=== PATIENT | male | born 1975 | race African-American/Black ===

== ENCOUNTER 2021-11-03 12:50 | Inpatient (IN) | payer OTHER ==
[2021-11-03 15:57] VITALS: BMI 20.8
[2021-11-03] MEDS ORDERED: guaiFENesin 200 MG/10 ML 10 ML UNIT-DOSE CUPS PO PRN (18:34)
[2021-11-03] MEDS ORDERED: MAG HYDROX/AL HYDROX/SIMETH 30 ML UNIT-DOSE CUP PO PRN (18:34)
[2021-11-03] MEDS ORDERED: LOPERAMIDE HCL 2 MG CAPSULE PO PRN (18:34)
[2021-11-03] MEDS ORDERED: ACETAMINOPHEN 325 MG TABLET (FP) PO PRN (18:34)
[2021-11-03] MEDS ORDERED: IBUPROFEN 400 MG TABLET (FP) PO PRN (18:34)
[2021-11-03] MEDS ORDERED: P-EPHED 60MG/TRIPROLIDI 2.5MG TABLET PO PRN (18:34)
[2021-11-03] MEDS ORDERED: MAGNESIUM CITRATE 300 ML BOTTLE PO PRN (18:34)
[2021-11-03] MEDS ORDERED: MAGNESIUM HYDROX 2400MG/30ML ORAL SUSPENSION 30 ML CUP PO PRN (18:34)
[2021-11-03] MEDS ORDERED: TUBERCULIN PPD 5 TU/0.1ML VIAL ID ONE (20:37)
[2021-11-03] MEDS: PRENATAL VITAMINS W/ FOLIC ACID TABLET (FP) PO SCH (20:39)
[2021-11-03] MEDS: NICOTINE 7 MG/24 HOURS TOPICAL PATCH TD SCH (20:40)
[2021-11-03] MEDS: BACITRACIN 0.9 GM PACKET TP SCH (21:00)
[2021-11-03] MEDS: MELATONIN 5 MG TABLETS PO SCH (21:00)
[2021-11-03] MEDS: THIAMINE HCL 100 MG TABLET (FP) PO SCH (21:00)
[2021-11-03] MEDS: hydrOXYzine PAMOATE 25 MG CAPSULE (FP) PO SCH (21:01)
[2021-11-04] MEDS: hydrOXYzine PAMOATE 25 MG CAPSULE (FP) PO SCH ×5 (06:26→21:26)
[2021-11-04] MEDS: PRENATAL VITAMINS W/ FOLIC ACID TABLET (FP) PO SCH (10:02)
[2021-11-04] MEDS: NICOTINE 7 MG/24 HOURS TOPICAL PATCH TD SCH (10:02)
[2021-11-04 10:18] LABS: HEMATOCRIT 35.6 % (35.4-49); HEMOGLOBIN 11.5 GM/dL (11.7-16.9); MCH 28.8 pg (25.7-33.7); MCHC 32.3 g/dl (32.0-35.9); MEAN CELL VOLUME 89.2 fl (80-96); MEAN PLT VOLUME 7.2 fl (7.5-11.1); PLATELET COUNT 317 10^3/uL (134-434); RDW 13.4 % (11.9-15.9); WHITE BLOOD COUNT 3.3 K/mm3 (4.0-10.0)
[2021-11-04 10:28] LABS: EPI CELLS 6 /uL (0-25.1); HYALINE CASTS 1 /uL (0-3.1); PH,URINE 6.5 (5.0-8.0); URINE APPEARANCE CLEAR; URINE BACTERIA 3 /uL (0-1359); URINE BILIRUBIN NEGATIVE (NEGATIVE); URINE COLOR YELLOW; URINE GLUCOSE (UA) NEGATIVE (NEGATIVE); URINE KETONE NEGATIVE (NEGATIVE); URINE LEUK ESTERASE TRACE (NEGATIVE); URINE NITRITE NEGATIVE (NEGATIVE); URINE PROTEIN NEGATIVE (NEGATIVE); URINE RBC 2 /uL (0-23.9); URINE UROBILINOGEN 0.2 mg/dL (0.2-1.0); URINE WBC 6 /uL (0-25.8)
[2021-11-04 10:29] LABS: ALBUMIN 3.1 g/dl (3.4-5.0); BLOOD UREA NITROGEN 15.5 mg/dL (7-18); CALCIUM 9.1 mg/dL (8.5-10.1)
[2021-11-04 10:32] LABS: CREATININE 0.8 mg/dL (0.55-1.3)
[2021-11-04 10:33] LABS: TOT PROT 6.5 g/dl (6.4-8.2)
[2021-11-04 10:35] LABS: BILIRUBIN,TOTAL 0.3 mg/dL (0.2-1)
[2021-11-04] MEDS: BACITRACIN 0.9 GM PACKET TP SCH ×2 (13:18→21:26)
[2021-11-04 18:58] LABS: HIV INTERPRETATION NEGATIVE (NEGATIVE)
[2021-11-04] MEDS: THIAMINE HCL 100 MG TABLET (FP) PO SCH (21:26)
[2021-11-04] MEDS: MELATONIN 5 MG TABLETS PO SCH (21:26)
[2021-11-05] MEDS: hydrOXYzine PAMOATE 25 MG CAPSULE (FP) PO SCH (06:30)
[2021-11-05] MEDS: NICOTINE 7 MG/24 HOURS TOPICAL PATCH TD SCH (10:38)
[2021-11-05] MEDS: PRENATAL VITAMINS W/ FOLIC ACID TABLET (FP) PO SCH (10:38)
[2021-11-05] MEDS: BACITRACIN 0.9 GM PACKET TP SCH ×2 (10:38→21:40)
[2021-11-05] MEDS: MELATONIN 5 MG TABLETS PO SCH (21:40)
[2021-11-05] MEDS: THIAMINE HCL 100 MG TABLET (FP) PO SCH (21:40)
[2021-11-06] MEDS: BACITRACIN 0.9 GM PACKET TP SCH ×2 (10:35→21:14)
[2021-11-06] MEDS: PRENATAL VITAMINS W/ FOLIC ACID TABLET (FP) PO SCH (10:35)
[2021-11-06] MEDS: NICOTINE 7 MG/24 HOURS TOPICAL PATCH TD SCH (10:35)
[2021-11-06] MEDS: hydrOXYzine PAMOATE 25 MG CAPSULE (FP) PO PRN (21:14)
[2021-11-06] MEDS: MELATONIN 5 MG TABLETS PO SCH (21:14)
[2021-11-06] MEDS: THIAMINE HCL 100 MG TABLET (FP) PO SCH (21:14)
[2021-11-07] MEDS: NICOTINE 7 MG/24 HOURS TOPICAL PATCH TD SCH (09:40)
[2021-11-07] MEDS: PRENATAL VITAMINS W/ FOLIC ACID TABLET (FP) PO SCH (09:40)
[2021-11-07] MEDS: hydrOXYzine PAMOATE 25 MG CAPSULE (FP) PO PRN ×2 (09:40→21:09)
[2021-11-07] MEDS: BACITRACIN 0.9 GM PACKET TP SCH ×2 (09:40→21:08)
[2021-11-07] MEDS: MELATONIN 5 MG TABLETS PO SCH (21:09)
[2021-11-07] MEDS: THIAMINE HCL 100 MG TABLET (FP) PO SCH (21:09)
[2021-11-08] MEDS: BACITRACIN 0.9 GM PACKET TP SCH ×2 (09:40→21:03)
[2021-11-08] MEDS: NICOTINE 7 MG/24 HOURS TOPICAL PATCH TD SCH (09:41)
[2021-11-08] MEDS: hydrOXYzine PAMOATE 25 MG CAPSULE (FP) PO PRN ×2 (09:41→21:03)
[2021-11-08] MEDS: PRENATAL VITAMINS W/ FOLIC ACID TABLET (FP) PO SCH (09:41)
[2021-11-08] MEDS: THIAMINE HCL 100 MG TABLET (FP) PO SCH (21:03)
[2021-11-08] MEDS: MELATONIN 5 MG TABLETS PO SCH (21:03)
[2021-11-09] MEDS: BACITRACIN 0.9 GM PACKET TP SCH ×2 (11:04→21:08)
[2021-11-09] MEDS: PRENATAL VITAMINS W/ FOLIC ACID TABLET (FP) PO SCH (11:04)
[2021-11-09] MEDS: NICOTINE 7 MG/24 HOURS TOPICAL PATCH TD SCH (11:05)
[2021-11-09] MEDS: MELATONIN 5 MG TABLETS PO SCH (21:08)
[2021-11-09] MEDS: hydrOXYzine PAMOATE 25 MG CAPSULE (FP) PO PRN (21:08)
[2021-11-09] MEDS: THIAMINE HCL 100 MG TABLET (FP) PO SCH (21:08)
[2021-11-10] MEDS: PRENATAL VITAMINS W/ FOLIC ACID TABLET (FP) PO SCH (09:42)
[2021-11-10] MEDS: hydrOXYzine PAMOATE 25 MG CAPSULE (FP) PO PRN (09:42)
[2021-11-10] MEDS: BACITRACIN 0.9 GM PACKET TP SCH ×2 (09:43→21:10)
[2021-11-10] MEDS: NICOTINE 7 MG/24 HOURS TOPICAL PATCH TD SCH (09:43)
[2021-11-10] MEDS: MELATONIN 5 MG TABLETS PO SCH (21:10)
[2021-11-10] MEDS: THIAMINE HCL 100 MG TABLET (FP) PO SCH (21:10)
[2021-11-11] MEDS: PRENATAL VITAMINS W/ FOLIC ACID TABLET (FP) PO SCH (09:55)
[2021-11-11] MEDS: hydrOXYzine PAMOATE 25 MG CAPSULE (FP) PO PRN ×2 (09:55→21:16)
[2021-11-11] MEDS: BACITRACIN 0.9 GM PACKET TP SCH ×2 (09:55→21:15)
[2021-11-11] MEDS: NICOTINE 7 MG/24 HOURS TOPICAL PATCH TD SCH (09:56)
[2021-11-11] MEDS ORDERED: HALOPERIDOL 1 MG TABLET PO PRN (12:44)
[2021-11-11] MEDS ORDERED: HALOPERIDOL 5 MG TABLET PO PRN (12:57)
[2021-11-11] MEDS: BENZTROPINE MESYLATE 1 MG TABLET PO SCH ×2 (13:06→21:15)
[2021-11-11] MEDS ORDERED: HALOPERIDOL 5 MG TABLET PO ONE (13:15)
[2021-11-11] MEDS: MELATONIN 5 MG TABLETS PO SCH (21:16)
[2021-11-11] MEDS: THIAMINE HCL 100 MG TABLET (FP) PO SCH (21:16)
[2021-11-11] MEDS: HALOPERIDOL 5 MG TABLET PO SCH (21:17)
[2021-11-12] MEDS: HALOPERIDOL 5 MG TABLET PO SCH ×2 (10:31→21:16)
[2021-11-12] MEDS: BENZTROPINE MESYLATE 1 MG TABLET PO SCH ×2 (10:32→21:15)
[2021-11-12] MEDS: NICOTINE 7 MG/24 HOURS TOPICAL PATCH TD SCH (10:32)
[2021-11-12] MEDS: PRENATAL VITAMINS W/ FOLIC ACID TABLET (FP) PO SCH (10:32)
[2021-11-12] MEDS: BACITRACIN 0.9 GM PACKET TP SCH ×2 (10:33→21:52)
[2021-11-12] MEDS: THIAMINE HCL 100 MG TABLET (FP) PO SCH (21:15)
[2021-11-12] MEDS: hydrOXYzine PAMOATE 25 MG CAPSULE (FP) PO PRN (21:16)
[2021-11-12] MEDS: MELATONIN 5 MG TABLETS PO SCH (21:16)
[2021-11-13] MEDS: HALOPERIDOL 5 MG TABLET PO SCH ×2 (10:10→21:07)
[2021-11-13] MEDS: PRENATAL VITAMINS W/ FOLIC ACID TABLET (FP) PO SCH (10:10)
[2021-11-13] MEDS: BENZTROPINE MESYLATE 1 MG TABLET PO SCH ×2 (10:10→21:07)
[2021-11-13] MEDS: hydrOXYzine PAMOATE 25 MG CAPSULE (FP) PO PRN (10:10)
[2021-11-13] MEDS: BACITRACIN 0.9 GM PACKET TP SCH ×2 (10:11→21:07)
[2021-11-13] MEDS: NICOTINE 7 MG/24 HOURS TOPICAL PATCH TD SCH (10:16)
[2021-11-13] MEDS ORDERED: FLU VACC QS2021-22(6MOS UP)/PF 60 MCG/0.5 ML SYRINGE IM ONE (12:00)
[2021-11-13] MEDS ORDERED: PNEUMOCOCCAL 23 VACCINE 0.5 ML VIAL IM ONE (12:00)
[2021-11-13] MEDS ORDERED: PNEUMOC 13-VAL CONJ-DIP CRM/PF 0.5 ML DISP.SYRIN IM ONE (12:00)
[2021-11-13] MEDS: NICOTINE 10 MG CARTRIDGE (INHALER) IH PRN ×2 (17:13→21:07)
[2021-11-13] MEDS: MELATONIN 5 MG TABLETS PO SCH (21:07)
[2021-11-13] MEDS: THIAMINE HCL 100 MG TABLET (FP) PO SCH (21:07)
[2021-11-14] MEDS: BACITRACIN 0.9 GM PACKET TP SCH ×2 (10:03→22:01)
[2021-11-14] MEDS: HALOPERIDOL 5 MG TABLET PO SCH ×2 (10:03→21:02)
[2021-11-14] MEDS: BENZTROPINE MESYLATE 1 MG TABLET PO SCH ×2 (10:03→21:02)
[2021-11-14] MEDS: PRENATAL VITAMINS W/ FOLIC ACID TABLET (FP) PO SCH (10:04)
[2021-11-14] MEDS: NICOTINE 7 MG/24 HOURS TOPICAL PATCH TD SCH (10:04)
[2021-11-14] MEDS: NICOTINE 10 MG CARTRIDGE (INHALER) IH PRN ×2 (10:05→16:54)
[2021-11-14] MEDS: hydrOXYzine PAMOATE 25 MG CAPSULE (FP) PO PRN (21:02)
[2021-11-14] MEDS: MELATONIN 5 MG TABLETS PO SCH (21:03)
[2021-11-14] MEDS: THIAMINE HCL 100 MG TABLET (FP) PO SCH (21:03)
[2021-11-15] MEDS: BACITRACIN 0.9 GM PACKET TP SCH ×3 (09:31→21:13)
[2021-11-15] MEDS: HALOPERIDOL 5 MG TABLET PO SCH ×2 (09:31→21:13)
[2021-11-15] MEDS: PRENATAL VITAMINS W/ FOLIC ACID TABLET (FP) PO SCH (09:31)
[2021-11-15] MEDS: BENZTROPINE MESYLATE 1 MG TABLET PO SCH ×2 (09:32→21:12)
[2021-11-15] MEDS: NICOTINE 7 MG/24 HOURS TOPICAL PATCH TD SCH (09:32)
[2021-11-15] MEDS: NICOTINE 10 MG CARTRIDGE (INHALER) IH PRN (17:01)
[2021-11-15] MEDS: THIAMINE HCL 100 MG TABLET (FP) PO SCH (21:12)
[2021-11-15] MEDS: MELATONIN 5 MG TABLETS PO SCH (21:13)
[2021-11-16] MEDS: HALOPERIDOL 5 MG TABLET PO SCH ×2 (09:41→21:12)
[2021-11-16] MEDS: BENZTROPINE MESYLATE 1 MG TABLET PO SCH ×2 (09:41→21:11)
[2021-11-16] MEDS: PRENATAL VITAMINS W/ FOLIC ACID TABLET (FP) PO SCH (09:41)
[2021-11-16] MEDS: NICOTINE 7 MG/24 HOURS TOPICAL PATCH TD SCH (09:42)
[2021-11-16] MEDS: BACITRACIN 0.9 GM PACKET TP SCH ×2 (09:42→21:11)
[2021-11-16] MEDS: NICOTINE 10 MG CARTRIDGE (INHALER) IH PRN (16:53)
[2021-11-16] MEDS: THIAMINE HCL 100 MG TABLET (FP) PO SCH (21:11)
[2021-11-16] MEDS: hydrOXYzine PAMOATE 25 MG CAPSULE (FP) PO PRN (21:12)
[2021-11-16] MEDS: MELATONIN 5 MG TABLETS PO SCH (21:49)
[2021-11-17] MEDS: HALOPERIDOL 5 MG TABLET PO SCH ×2 (10:15→21:01)
[2021-11-17] MEDS: BENZTROPINE MESYLATE 1 MG TABLET PO SCH ×2 (10:15→21:01)
[2021-11-17] MEDS: BACITRACIN 0.9 GM PACKET TP SCH ×2 (10:15→21:01)
[2021-11-17] MEDS: hydrOXYzine PAMOATE 25 MG CAPSULE (FP) PO PRN (10:15)
[2021-11-17] MEDS: PRENATAL VITAMINS W/ FOLIC ACID TABLET (FP) PO SCH (10:16)
[2021-11-17] MEDS: NICOTINE 7 MG/24 HOURS TOPICAL PATCH TD SCH (10:17)
[2021-11-17] MEDS ORDERED: HALOPERIDOL DECANOATE 500 MG/5ML MDV IM ONE (13:24)
[2021-11-17] MEDS: THIAMINE HCL 100 MG TABLET (FP) PO SCH (21:01)
[2021-11-17] MEDS: MELATONIN 5 MG TABLETS PO SCH (21:02)
[2021-11-18] MEDS: BENZTROPINE MESYLATE 1 MG TABLET PO SCH ×2 (09:54→21:04)
[2021-11-18] MEDS: HALOPERIDOL 5 MG TABLET PO SCH ×2 (09:54→21:05)
[2021-11-18] MEDS: NICOTINE 7 MG/24 HOURS TOPICAL PATCH TD SCH (09:54)
[2021-11-18] MEDS: PRENATAL VITAMINS W/ FOLIC ACID TABLET (FP) PO SCH (09:54)
[2021-11-18] MEDS: BACITRACIN 0.9 GM PACKET TP SCH ×2 (09:54→21:03)
[2021-11-18] MEDS ORDERED: HALOPERIDOL DECANOATE 500 MG/5ML MDV IM ONE (10:57)
[2021-11-18] MEDS: NICOTINE 10 MG CARTRIDGE (INHALER) IH PRN (17:11)
[2021-11-18] MEDS: hydrOXYzine PAMOATE 25 MG CAPSULE (FP) PO PRN (21:03)
[2021-11-18] MEDS: THIAMINE HCL 100 MG TABLET (FP) PO SCH (21:03)
[2021-11-18] MEDS: MELATONIN 5 MG TABLETS PO SCH (21:05)
[2021-11-19] MEDS: PRENATAL VITAMINS W/ FOLIC ACID TABLET (FP) PO SCH (09:58)
[2021-11-19] MEDS: BENZTROPINE MESYLATE 1 MG TABLET PO SCH ×2 (09:59→21:10)
[2021-11-19] MEDS: BACITRACIN 0.9 GM PACKET TP SCH ×2 (09:59→21:10)
[2021-11-19] MEDS: HALOPERIDOL 5 MG TABLET PO SCH ×2 (09:59→21:10)
[2021-11-19] MEDS: NICOTINE 7 MG/24 HOURS TOPICAL PATCH TD SCH (09:59)
[2021-11-19] MEDS: THIAMINE HCL 100 MG TABLET (FP) PO SCH (21:10)
[2021-11-19] MEDS: hydrOXYzine PAMOATE 25 MG CAPSULE (FP) PO PRN (21:11)
[2021-11-19] MEDS: MELATONIN 5 MG TABLETS PO SCH (21:11)
[2021-11-20] MEDS: PRENATAL VITAMINS W/ FOLIC ACID TABLET (FP) PO SCH (09:46)
[2021-11-20] MEDS: BENZTROPINE MESYLATE 1 MG TABLET PO SCH ×2 (09:46→21:08)
[2021-11-20] MEDS: HALOPERIDOL 5 MG TABLET PO SCH ×2 (09:46→21:08)
[2021-11-20] MEDS: NICOTINE 7 MG/24 HOURS TOPICAL PATCH TD SCH (09:47)
[2021-11-20] MEDS: BACITRACIN 0.9 GM PACKET TP SCH ×2 (09:47→21:08)
[2021-11-20] MEDS: THIAMINE HCL 100 MG TABLET (FP) PO SCH (21:08)
[2021-11-20] MEDS: MELATONIN 5 MG TABLETS PO SCH (21:08)
[2021-11-21] MEDS: PRENATAL VITAMINS W/ FOLIC ACID TABLET (FP) PO SCH (09:42)
[2021-11-21] MEDS: hydrOXYzine PAMOATE 25 MG CAPSULE (FP) PO PRN (09:42)
[2021-11-21] MEDS: HALOPERIDOL 5 MG TABLET PO SCH (09:42)
[2021-11-21] MEDS: BENZTROPINE MESYLATE 1 MG TABLET PO SCH (09:42)
[2021-11-21] MEDS: BACITRACIN 0.9 GM PACKET TP SCH (09:43)
[2021-11-21] MEDS: NICOTINE 7 MG/24 HOURS TOPICAL PATCH TD SCH (09:43)
[2021-11-21] MEDS: NICOTINE 10 MG CARTRIDGE (INHALER) IH PRN (16:50)
[2021-11-21 18:33] VITALS: BP 139/78; PULSE 114; TEMP 99
== END 2021-11-21 18:15 | disposition home or self-care (01) | DRG 772 ==
LOC: YASAS 12:50 → Y3W 19:19 → Y5N 11-06 14:11
PROVIDERS: ADMIT Allergy & Immunology; ATTEND Allergy & Immunology
PROC: HZ42ZZZ Group Counseling for Substance Abuse Treatment, Cognitive-Behavioral (ICD-10-PCS; principal; 2021-11-20)
DX: F14.20 Cocaine dependence, uncomplicated (principal); F17.210 Nicotine dependence, cigarettes, uncomplicated; F20.9 Schizophrenia, unspecified; Z62.810 Personal history of physical and sexual abuse in childhood; Z59.01 Sheltered homelessness; Z56.0 Unemployment, unspecified
CPT/HCPCS: 36415; 80053; 81003; 85027; 86780; 86803; 87389; C9803; U0003; U0005